=== PATIENT | male | born 1985 | race Caucasian/White ===

== ENCOUNTER 2021-06-09 23:41 | Emergency (ER) | payer BC ==
[~2021-06-09] VITALS: Ht 180.3 cm; Wt 85.0 kg
[2021-06-10] MEDS ORDERED: KETOROLAC 30MG/ML VIAL IV STA (01:31)
[2021-06-10] MEDS ORDERED: ONDANSETRON HCL 4MG/2ML INJ IV STA (01:31)
[2021-06-10] MEDS ORDERED: SODIUM CHLORIDE 0.9% 1,000 ML IV ONE ×2 (01:45→03:45)
[2021-06-10 02:29] LABS: HEMATOCRIT. 49.4 % (42.0-52.0); HEMOGLOBIN. 16.9 g/dL (14.0-18.0); MEAN CORPUSCULAR HEMOGLOBIN 29.6 pg (28.0-32.0); MEAN CORPUSCULAR VOLUME 86.7 fL (80.0-94.0); MEAN PLATELET VOLUME 9.6 fl (7.4-10.4); PLATELET 282 x1000/uL (130-400); RED CELL DISTRIBUTION WIDTH 13.1 % (11.6-14.6)
[2021-06-10 02:37] LABS: CHLORIDE 104 mEq/L (98-107)
[2021-06-10 02:39] LABS: PROTHROMBIN TIME 10.8 sec (9.6-11.0)
[2021-06-10 02:58] LABS: ATYPICAL LYMPHOCYTES 1
[2021-06-10 02:59] LABS: PLATELET ESTIMATE NORMAL
[2021-06-10 03:08] LABS: CLARITY URINE CLEAR (CLEAR); COLOR URINE DARK YELLOW (YELLOW); KETONES URINE 3+ (NEGATIVE); LEUKOCYTE ESTERASE URINE NEGATIVE (NEGATIVE); NITRITE URINE NEGATIVE (NEGATIVE); OCCULT BLOOD URINE NEGATIVE (NEGATIVE); PH URINE 5.5 (4.5-8.0); PROTEIN URINE 1+ (NEGATIVE); SPECIFIC GRAVITY URINE 1.032 (1.005-1.030)
[2021-06-10] MEDS ORDERED: IOHEXOL-300 100 ML BOTTLE ONE (06:33)
[2021-06-10] MEDS ORDERED: IMOD MT (06:55)
[2021-06-10] MEDS ORDERED: CIPR500S3 MT (06:55)
[2021-06-10] MEDS ORDERED: ONDA4TAB5 MT (06:55)
[2021-06-10] MEDS ORDERED: ONDANSETRON HCL 4MG/2ML INJ IV ONE (07:00)
[2021-06-10 07:05] LABS: *AMPHETAMINES SCREEN URINE NEGATIVE (NEGATIVE); *BARBITURATES SCREEN URINE NEGATIVE (NEGATIVE); *BENZODIAZEPINES SCREEN URINE NEGATIVE (NEGATIVE); *COCAINE SCREEN URINE NEGATIVE (NEGATIVE)
[2021-06-10 07:06] LABS: CANNABINOID URINE SCREEN PRESUMTIVE POSITIVE (NEGATIVE); METHADONE URINE SCREEN NEGATIVE (NEGATIVE); OPIATES URINE SCREEN NEGATIVE (NEGATIVE); PHENCYCLIDINE URINE SCREEN NEGATIVE (NEGATIVE)
[2021-06-10 07:11] VITALS: BP 108/62
== END 2021-06-10 07:16 | disposition home or self-care (01) ==
LOC: ER 23:41
DX: K52.9 Noninfective gastroenteritis and colitis, unspecified (principal); Z20.822 Contact with and (suspected) exposure to COVID-19
CPT/HCPCS: 36415; 74177; 76705; 80053; 80305; 81003; 83605; 83690; 85025; 85610; 87040; 87426; 96361; 96374; 96375; 96376; 99285; J1885; J2405; J7030; Q9967